=== PATIENT | female | born 1970 | race Caucasian/White ===

== ENCOUNTER 2024-04-18 10:49 | Outpatient (OUT) | payer BC, SELFPAY ==
--- NOTE | 2024-04-18 | XR_ITS ---
[address] [address] Patient Name: JAE CARO MRN: [id number] date: 1970 Sex: F Assigned Patient Location: Current Patient Location: Accession/Order Number: [id number] Exam Date: 04/18/2024 11:13 Report Date: 04/20/2024 07:33 At the request of: ANABEL HAMMOND Procedure: XR lumbar spine min 4V EXAMINATION: XR lumbar spine min 4V HISTORY: LUMBAR SPINE PAIN COMPARISON: XR lumbar spine 11/06/2013 FINDINGS: BONES: Moderate right convex curvature of the thoracolumbar spine. No fracture, spondylolisthesis, or change in alignment during flexion and extension. Multilevel mild-moderate degenerative facet arthropathy. DISC SPACES: Moderate narrowing L2-L3, L3-L4, L5-S1. Intervertebral spacer at L4-L5. PARASPINOUS: Negative. No paraspinous abnormality is seen. OTHER: Negative. XR/XR lumbar spine min 4V IMPRESSION: 1. Moderate dextroscoliosis of lumbar spine; slightly progressed since prior study. 2. Slight progression of degenerative disc disease at all lumbar levels. 3. L4-L5 intervertebral disc spacers; stable. Electronically authenticated by: IRMA WILEY Date: 04/20/2024 07:33
== END 2024-04-18 10:50 | disposition home or self-care (01) ==
LOC: EC 10:49
PROVIDERS: Family Provider Family Medicine; Visit Provider Orthopaedic Surgery Orthopaedic Surgery of the Spine
DX: M54.50 Low back pain, unspecified (principal); M51.369 Other intervertebral disc degeneration, lumbar region without mention of lumbar back pain or lower extremity pain
CPT/HCPCS: 72110

== ENCOUNTER 2024-05-05 13:17 | Outpatient (OUT) | payer BC, SELFPAY ==
--- OUTSIDE RECORDS SUMMARY | 2024-05-05 13:23 | XMS_ITS | CCD ---
Author Organization [facility] Inform ion Partnership [facility] Care Team Providers Care Sports Marketer Name Role Phone Dipak Sanabria MD Primary Care Provider [phone] Unavailable Primary Care Provider Unavailabl e Allergies Allergy Classification Reported Allergen(s) Allergy Type Date of Onset Reaction(s) Facility (1 source) [facility] Allergy 06-02-2014 Other (See Comments) [facility] Problems Active Problems Problem Classification Problem Date Documented Date Episodic/Chronic Other acquired deformities (1 source) Acquired scoliosis; Translations: [Scoliosis, unspecified] Onset: 06-02-2014 03-21-2019 Chronic Spondylosis; intervertebral disc disorders; other back problems (1 source) Disorder of lumbar disc; Translations: [Unspecified thoracic, thoracolumbar and lumbosacral intervertebral disc disorder] Onset: 03-21-2019 03-21-2019 Chronic Past or Other Problems Problem Classification Problem Date Documented Da te Episodic/Chronic Mood disorders (1 source) Mood disorders Onset: 12-28-2022 12-28-2022 Encounters Encounter Date Encounter Type Care Provider Facility Start: 05-05-2024 End: 05-05-2024 Bamboo flowsheet Bria Stapleton DO Work Phone: [facility] [address] Start: 05-05-2024 End: 05-05-2024 Bamboo flowsheet Bria Stapleton DO Work Phone: [facility] [address] Start: 04-22-2024 End: 04-22-2024 Telephone encounter Esther Cote RN Work Phone: [facility] Procedures Date Procedure Procedure Detail Performing Clinician Start: 12-28-2022 Adult depression screening assessment Esther Cote RN Work Phone: Plan of Treatment Date Care Activity Detail Author Start: 05-23-2024 Adult BMI Screening Adult BMI Screening [facility] Start: 05-23-2024 Tobacco Screening Tobacco Screening [facility] Start: 03-16-2024 Influenza vaccination Influenza Vaccine [facility] Start: 12-29-2023 Depression Screening Depression Screening [facility] Start: 2019 Administration of varicella zoster vaccine Zoster (Shingles) Vaccine (1 of 2) [facility] Start: 2009 Screening for malignant neoplasm of breast Mammogram [facility] Start: 01-23-1988 DTaP,Tdap and Td Vaccines (1 - Tdap) DTaP,Tdap and Td Vaccines (1 - Tdap) [facility] Payers Date Payer Category Payer [facility] [id number] 2017 Unknown [facility] OUT OF STATE PPO/TRUST [id number] 2017-Present [phone] [address] [place] [id number] Social History Date Type Detail Facility Start: 05-23-2023 Tobacco smoking status NHIS Ex-smoker [facility] History of tobacco use Current smoker [facility] History of tobacco use Cigarette Smoker P [facility] Start: 05-23-2023 Tobacco use and exposure Smokeless tobacco non-user [facility] Start: 05-23-2023 Alcoholic beverage intake Current drinker of alcohol (finding) [facility] Start: 03-21-2019 End: 08-26-2020 History of Social function [facility] Start: 03-21-2019 End: 08-26-2020 Alcohol Use Disorder Identification Test - Consumption [AUDIT-C] [facility] Frequency of Alcohol Consumption Monthly or less [facility] Start: 05-05-2020 Alcohol Comment very little [facility] Start: 1970 Sex assigned at Not on file [facility] Tobacco smoking stat [facility] Tobacco smoking consumption unknown [facility] Note 04-22-2024 Telephone Encounter - Esther Cote RN - 04/22/2024 9:55 AM EDT Note Date & Type Note Facility 04-22-2024 Miscellaneous Notes Formattin g of this note might be different from the original. Per patient request- visit note from [facility] sent to Dr Johnson at [facility]. . Patient will contact [facility] where she had the procedure done in Aug 1999. Your fax has been successfully sent to [phone] at [phone]. From: [email or web address] documented in this encounter [facility] Telephone encounter Note 04-22-2024 Telephone Encounter - Esther Cote RN - 04/22/2024 9:55 AM EDT Note Date & Type Note Facility 04-22-2024 Telephone encounter Note Per patient request- visit note from [facility] sent to Dr Johnson at [facility]. . Patient will contact [facility] where she had the procedure done in Aug 1999. Your fax has been successfully sent to [phone] at [phone]. From: [email or web address] Work Phone: Instructions Note Date & Type Note Facility Instructions Not on filedocumented in this en counter [email or web address] Additional Source Comments Care Teams (unrecognized sec tion and content) Sports Marketer Relationship Specialty Start Date End Date Dipak Sanabria MD [address] [place] [address] PCP - General 03/19/14 FOR RECORDS PERTAINING TO PATIENTS WHO ARE OR HAVE BEEN ENROLLED IN A CHEMICAL DEPENDENCY/SUBSTANCEABUSE PROGRAM, SOME INFORMATION MAY BE OMITTED. This clinical summary was aggregated from multiple sources. Caution should be exercised in using it in the provision of clinical care. This summary normalizes information from multiple sources, and as a consequence, information in this document may materially change the coding, format and clinical context of patient data. In addition, data may be omitted in some cases. CLINICAL DECISIONS SHOULD BE BASED ON THE PRIMARY CLINICAL RECORDS. [employer] provides no warranty or guarantee of the accuracy or completeness of information in this document.
--- NOTE | 2024-05-05 13:24 | MR_ITS ---
[address] [address] Patient Name: JAE CARO MRN: [facility]:[id number] date: 1970 Sex: F Assigned Patient Location: MRI Current Patient Location: Accession/Order Number: [id number] Exam Date: 05/05/2024 13:45 Report Date: 05/06/2024 10:48 At the request of: ANABEL HAMMOND Procedure: MR lumbar spine wo con EXAMINATION: MR lumbar spine wo con HISTORY: Spondylosis Of Lumbar Spine COMPARISON: No relevant comparison available. TECHNIQUE: A variety of imaging planes and parameters were utilized for visualization of suspected pathology. FINDINGS: For the purposes of numbering, sagittal T2 image # 8 extends from the T10 vertebral body superiorly to the S4 level inferiorly. PARASPINAL AREA: Normal with no visible mass. BONES: Normal alignment with no acute fracture or spondylolisthesis. No bone edema. Heterogeneous marrow signal, likely age-related changes CORD/CAUDA EQUINA: Normal caliber, contour, and signal intensity. DISC LEVELS: 12-L1: No significant disc/facet abnormality, spinal stenosis, or foraminal stenosis. L1-L2: Early degenerative disc disease is present without focal protrusion or neural impingement. L2-L3: Moderate disc space narrowing and disc desiccation. Mild diffuse disc/osteophyte complex. No central or foraminal stenosis L3-L4: Moderate to severe disc space narrowing with endplate sclerosis. Mild diffuse disc/osteophyte complex with facet osteoarthropathy. No central canal or left foraminal stenosis. Moderate right foraminal stenosis L4-L5: Interbody spacer with susceptibility artifact. Mild diffuse disc/osteophyte complex. No central canal or left foraminal stenosis. Moderate narrowing of the right neural foramen L5-S1: Mild posterior disc bulge. No central or foraminal stenosis MR/MR lumbar spine wo con IMPRESSION: Degenerative changes resulting in right foraminal stenosis at L3-4 and L4-L5 Electronically authenticated by: RAJNI TORRES Date: 05/06/2024 10:48
== END 2024-05-05 13:18 | disposition home or self-care (01) ==
LOC: MRI 13:19
PROVIDERS: Family Provider Family Medicine; Visit Provider Orthopaedic Surgery Orthopaedic Surgery of the Spine
DX: M41.9 Scoliosis, unspecified (principal); M51.369 Other intervertebral disc degeneration, lumbar region without mention of lumbar back pain or lower extremity pain
CPT/HCPCS: 72148